=== PATIENT | female | born 1970 | race Asian ===

== ENCOUNTER 2017-10-11 22:14 | Observation (INO) | payer BC ==
[2017-10-11] MEDS ORDERED: Acetaminophen 325 MG TAB ONE (22:46)
[2017-10-11] MEDS ORDERED: Ketorolac Tromethamine 30 MG/ML VIAL ONE (22:46)
[2017-10-11] MEDS ORDERED: Lidocaine Viscous Sol 2% 15 ml UD Cup ONE (22:47)
[2017-10-11] MEDS ORDERED: Mag-Al 1200 mg/1200 mg/30 ML UDCUP ONE (22:47)
[2017-10-12 01:01] LABS: CKMB 1.5 ng/mL (0-6.6); Troponin I Less than 0.010 ng/mL (< 0.028)
[2017-10-12] MEDS ORDERED: Ondansetron ODT 4 MG TAB SL PRN (01:32)
[2017-10-12] MEDS ORDERED: Ondansetron HCl/PF 4 MG/2 ML Vial IVP PRN ×2 (01:32→08:01)
[2017-10-12] MEDS ORDERED: Acetaminophen 325 MG TAB PO PRN ×2 (01:32→08:01)
[2017-10-12 01:42] VITALS: BMI 26.9
[2017-10-12] MEDS ORDERED: traMADol HCl 50 MG TAB PO PRN (02:05)
[2017-10-12 04:54] LABS: Magnesium 2.2 mg/dL (1.6-2.6); Potassium 4.2 mmol/L (3.5-5.1)
[2017-10-12 05:03] LABS: Troponin I Less than 0.010 ng/mL (< 0.028)
[2017-10-12 05:21] LABS: Troponin I Less than 0.010 ng/mL (< 0.028)
[2017-10-12] MEDS ORDERED: Aspirin 325 MG TAB PO SCH ×2 (08:00→09:00)
[2017-10-12] MEDS ORDERED: Nitroglycerin 0.4 MG TAB (25 Tab Bottle) PO PRN (08:01)
[2017-10-12] MEDS ORDERED: Ondansetron ODT 4 MG TAB PO PRN (08:01)
[2017-10-12] MEDS ORDERED: Mag-Al 1200 mg/1200 mg/30 ML UDCUP PO PRN (08:01)
[2017-10-12] MEDS ORDERED: Calcium Carbonate 500 MG ChewTAB PO PRN (08:01)
[2017-10-12] MEDS ORDERED: ALPRAZolam 0.25 MG TAB PO PRN (08:04)
[2017-10-12] MEDS ORDERED: Sodium Chloride 0.9% 500 ML IV SCH (08:15)
[2017-10-12 12:53] VITALS: BP 123/71; TEMP 97.5
--- NOTE | 2017-10-12 14:03 | NM ---
CARDIAC SPECT WITH EF AND WALL MOTION: HISTORY: A 47-year-old with a history of chest pain. Exercise sestamibi study was performed using Jon protocol. Stress images were performed following 30.1 mCi sestamibi intravenously. Resting images were perform ed following 10.5 mCi Technetium 99m sestamibi intravenously. Multiple SPECT images in the short axis, vertical long axis, and horizontal long axis demonstrate no scan evidence for infarct or ischemia. TID 0.94. LHR 0.33. EDV 70 mL. EF is 72%. MYOCARDIAL PERFUSION WALL MOTION: Wall motion is normal. IMPRESSION: Normal cardiac SPECT with EF and wall motion. POS: [facility]
--- NOTE | 2017-10-12 14:04 | HP ---
DATE OF ADMISSION: 10/12/2017 CHIEF COMPLAINT: Chest discomfort. HISTORY OF PRESENT ILLNESS: Patient is a 47-year-old female with a family history of heart disease, who presented to the emergency room with chest discomfort that lasted for 2 hours. It was precipitat ed by stress. She was dizzy and short of breath at that time. She also had numbness in her extremit ies. She denies any palpitations. No recent immobilization, except for a 16-hour plane trip back to [place]. Over the last 3-4 months, patient has been having on and off chest pressure, usually precipitat ed by stress. She denies any leg swelling, fever, chills, cough, shortness of breath, or heartburn. In the emergency room at [facility], her blood pressure was 122/88 with pulse rate of 88, respirations of 24 with O2 saturation 100% on facemask. Temperature was 98.1. EKG showed sinus tachycardia with he art rate of 112. Repeat EKG at this facility showed bigeminy pattern with sinus rhythm. Chest x-ray was negative for infiltrate. CT angiogram of the chest was negative for pulmonary embolism. She re ceived aspirin, sublingual nitroglycerin, and 1 mg Ativan by the EMS. She was transferred to this [facility] for hospital admission. She received Toradol and Tylenol at this facility. Please note that patient has 2 different medical record number in our hospital system. PAST SURGICAL HISTORY: 1. Tonsillectomy. 2. Cholecystectomy. ALLERGIES: The patient is allergic to CODEINE and HYDROCODONE. CURRENT HOME MEDICATIONS: Tylenol and ibuprofen as needed. FAMILY HISTORY: Positive for heart disease in her mother. SOCIAL HISTORY: Currently lives at home with her family. No smoking, alcohol, or drug use. REVIEW OF SYSTEMS: The following complete review of systems was negative, unless otherwise mentioned in the HPI or below: Constitutional: Weight loss or gain, ability to conduct usual activities. Sk in: Rash, itching. Eyes: Double vision, pain. ENT/Mouth: Nose bleeding, neck stiffness, pain, te nderness. Cardiovascular: Palpitations, dyspnea on exertion, orthopnea. Respiratory: Shortness of breath, wheezing, cough, hemoptysis, fever, or night sweats. Gastrointestinal: Poor appetite, abdo maik pain, heartburn, nausea, vomiting, constipation, or diarrhea. Genitourinary: Urgency, frequen cy, dysuria, nocturia. Musculoskeletal: Pain, swelling. Neurologic/Psychiatric: Anxiety, depressi on. Allergy/Immunologic: Skin rash, bleeding tendency. PHYSICAL EXAMINATION: VITAL SIGNS: As discussed above. GENERAL: A 47-year-old female in no apparent distress. Chest discomfort has resolved. HEENT: Head, atraumatic and normocephalic. Sclerae are anicteric. Moist mucous membrane, no oral l esion. NECK: Supple, no JVD appreciated. No carotid bruit. LUNGS: Clear to auscultation bilaterally. No wheezing, rales, or rhonchi. HEART: S1 and S2 present. Regular rate and rhythm. No murmur, rubs, or gallops appreciated. ABDOMEN: Soft, nontender, bowel sounds present. EXTREMITIES: No edema or calf tenderness. NEUROLOGIC: Grossly nonfocal. Moves all 4 extremities. PSYCHIATRY: Alert, awake, oriented x3. SKIN: Warm and dry. LYMPH NODES: No palpable lymph nodes in the neck. PERIPHERAL VASCULAR: Radial pulses palpable bilaterally. MUSCULOSKELETAL: No joint swelling or tenderness. LABORATORY FINDINGS: D-dimer was 0.70. CBC showed WBC 9.5, hemoglobin 12.6, hematocrit 39.4, platel ets of 314. Chemistries showed sodium 139, potassium 3.6, chloride 106, bicarbonate 18, BUN 17, crea tinine 0.77. Troponin remained negative. Chest x-ray and EKG, by my review, as discussed above. Ma gnesium and phosphorus in normal range. IMPRESSION AND PLAN: 1. Typical chest discomfort, precipitated by stress. 2. Elevated D-dimer with negative CT angiogram of the chest. 3. Family history of heart disease. 4. Chronic kidney disease, stage 2. 5. Intermittent palpitations, bigeminy on EKG. PLAN: Patient will be monitored on the telemetry unit. A stress test will be obtained. Due to fami ly history of heart disease, the family is concerned and are requesting cardiology consultation. An echocardiogram will be ordered as well. Plan of care was discussed with the patient and the family in detail. They stated understanding.
[2017-10-12] MEDS ORDERED: Ketorolac Tromethamine 30 MG/ML VIAL IVP SCH (16:00)
--- NOTE | 2017-10-13 11:52 | DIS ---
DATE OF ADMISSION: 10/12/2017 DATE OF DISCHARGE: 10/12/2017 Please refer to the history and physical dictated by me earlier today for details on the hospitalizat ion. BRIEF HOSPITAL COURSE: Patient is a 47-year-old female with family history of heart disease who pres ented to the hospital with chest discomfort that lasted for 2 hours. It was stress induced and press ure-like. Please refer to the history and physical for further details. The patient was admitted to the hospital with a diagnosis of chest discomfort, rule out acute coronar y syndrome. Initial EKG showed sinus rhythm with bigeminy. A stress test with Cardiolite was perfor med that showed normal left ventricular ejection fraction of 72% without any wall motion abnormalitie s. No reversible ischemia was seen. Echocardiogram was done, report is pending at this time. Cardi ology consultation has been set up for tomorrow at 3:[address] Sepulveda. She has been started on low dose aspirin for now. Plan of care was discussed with the patient and the family in detail. The y stated understanding. FINAL DIAGNOSES: 1. Chest discomfort, acute coronary syndrome ruled out. 2. Negative Cardiolite stress test. 3. Multiple premature ventricular contractions with bigeminy. Echocardiogram pending at the time of discharge. 4. Family history of heart disease. 5. Elevated D-dimer with negative CT angiogram of the chest. 6. Chronic kidney disease stage 2. 7. Intermittent palpitations, probably secondary to premature ventricular contractions.
--- NOTE | 2017-10-17 14:06 | EKG ---
Test Reason : CHESTPAIN XFER Blood Pressure : / mmHG Vent. Rate : 074 BPM Atrial Rate : 074 BPM P-R Int : 164 ms QRS Dur : 076 ms QT Int : 382 ms P-R-T Axes : 037 072 052 degrees QTc Int : 424 ms Sinus rhythm with frequent Premature ventricular complexes bigeminy No STEMI Otherwise normal ECG Confirmed by KALEIGH DO ([id number]), video news editor RO AVILA ([id number]) on 10/17/2017 2:05:58 PM Referred By: PEBBLES Confirmed By:KALEIGH DO
--- NOTE | 2017-10-21 09:11 | STRESS ---
Acquisition Time: 2017-10-12 11:39:19 Total Exercise Time: 00:06:31 Test Indications: CHEST PAIN Medications: Protocol: JULIO C Max HR: 153 BPM 89% of Pred: 171 BPM Max BP: 150/086 mmHG Max Work Load: 8.5 METS RESTING ECG: NORMAL SINUS RHYTHM AT 82 BPM SYMPTOMS: NONE NORMAL BP RESPONSE ECTOPY: NONE ECG STRESS: NO SIGNIFICANT CHANGES INTERPRETATION: NEGATIVE GXT/AWAIT NUCLEAR IMAGES FOR DEFINITIVE DIAGNOSIS Confirmed by RAQUEL SHARP ([id number]), book editor DARNELL CARREON ([id number]) on 10/21/2017 9:11:10 AM Referred By: MD Radha TILLMAN Confirmed By:RAQUEL SHARP
== END 2017-10-12 17:20 | disposition home or self-care (01) ==
LOC: ERS 22:14 → 2SW 10-12 01:22
PROVIDERS: ADMIT Hospitalist; ATTEND Hospitalist
DX: R07.89 Other chest pain (principal); N18.2 Chronic kidney disease, stage 2 (mild); I49.3 Ventricular premature depolarization; R79.89 Other specified abnormal findings of blood chemistry; Z88.5 Allergy status to narcotic agent
CPT/HCPCS: 36415; 78452; 82553; 83735; 84132; 84484; 93005; 93017; 93306; 94760; 96361; 96374; 96376; A9500; G0378; J1885